=== PATIENT | female | born 1965 | race Caucasian/White ===

== ENCOUNTER 2022-07-01 12:34 | Outpatient (CLI) | payer OTHER, SELFPAY ==
--- NOTE | 2022-07-01 12:53 | XRR_ITS ---
PROCEDURE INFORMATION: Exam: XR Chest Exam date and time: 07/01/2022 1:00 PM Age: 56 years old Clinical indication: Other: Lt sided pain; Patient HX: History-- hurts to breath on left side since 4 am; Additional info: Left sided pleurisy TECHNIQUE: Imaging protocol: Radiologic exam of the chest. Views: 2 views. COMPARISON: No relevant prior studies available. FINDINGS: Lungs: Unremarkable. No consolidation. Pleural spaces: Unremarkable. No pleural effusion. No pneumothorax. Heart/Mediastinum: Unremarkable. No cardiomegaly. Bones/joints: Unremarkable. XR/XR chest 2V* [id number] IMPRESSION: No acute findings.
== END 2022-07-01 12:35 | disposition home or self-care (01) ==
PROVIDERS: PCP Family Medicine; Visit Provider Clinical Nurse Specialist Adult Health
DX: R09.1 Pleurisy (principal)
CPT/HCPCS: 71046

== ENCOUNTER → 2022-07-27 15:36 | Outpatient (BNVA) | payer OTHER, SELFPAY | PROVIDERS: PCP Family Medicine; Referring Provider Dermatology; Visit Provider Podiatrist Foot & Ankle Surgery | DX: M72.2 Plantar fascial fibromatosis (principal) | CPT/HCPCS: 73630 ==

== ENCOUNTER 2022-09-23 09:58 | Emergency (ER) | payer OTHER, SELFPAY ==
[2022-09-23 10:00] VITALS: BMI 35.6
[2022-09-23 10:03] VITALS: BP 163/97; PULSE 65; RESP 18; TEMP 36.7; O2SAT 100
--- NOTE | 2022-09-23 10:03 | ECG_ITS ---
[facility] Test Date: 2022-09-23 Pat Name: Dinah Rockwell Department: Room: Gender: Female Fundraising Consultant: : 1965 Requested By: Lukasz Lopez Order Number: [id number] Ammy MD: Jaky Rangel M.D. Measurements Intervals [place] Rate: 76 P: 42 TX: 131 QRS: 47 QRSD: 94 T: 44 QT: 371 QTc: 419 Interpretive Statements SINUS RHYTHM No previous ECG available for comparison Electronically Signed On 09-23-2022 10:42:25 CDT by Jaky Rangel M.D. [id number]
--- NOTE | 2022-09-23 10:15 | XR_ITS ---
WS: [id number] Exam: XR chest 1V portable [id number] Date/Time of Exam: 09/23/2022 10:21 AM Reason For Exam: chest pain Comparison 07/01/2022. Findings: The lungs are clear and fully expanded. Costophrenic angles are sharp. No infiltrates. Bronchovascula r relief appears normal. Cardiac silhouette is unremarkable. Bony elements are intact. XR/XR chest 1V portable [id number] IMPRESSION: Unremarkable chest radiograph.
--- NOTE | 2022-09-23 10:36 | PC.NURSE ---
Patient is on continuous cardiac monitoring.
--- NOTE | 2022-09-23 10:38 | ED_ITS ---
HPI - Chest Pain General: Chief Complaint: Chest Pain Stated Complaint: Chest pains Time Seen by Provider: 09/23/22 10:00 Source: patient Mode of arrival: ambulatory History of Present Illness: 57-year-old female who presents to the emergency room with complaint of chest discomfort. Symptoms began yesterday she initially thought it was from heartburn last couple of nights she had relief with Pepto- Bismol that this morning she did not get relief. She did take some aspirin this morning. She feels like the patient is slowly in her chest she told me she had no radiation to neck arms back or shoulders. It seems to be improved now. She has had episodes of chest discomfort in the past which she is related to anxiety. She been getting 1 episode every 3 to 4 months. She recently seen her primary care doctor and she was set up for a stress test but has not yet been completed. She is not diabetic and does not smoke has no chronic respiratory issues. MD complaint: chest pain Onset (ago): day(s) (2) Timing of current episode: episodic Prior episodes: Yes Onset: during rest Pain location: left chest Pain radiation: none Severity: mild Quality: aching and heaviness Relieving factors: nothing Exacerbating factors: nothing Associated symptoms: Reports dyspnea; Deny abdominal pain, diaphoresis, fever(s), leg edema, nausea, palpitations, sense of impending doom, syncope or vomiting Treatment prior to arrival: aspirin Review of Systems Const: Denies: fever(s) or diaphoresis Card: Denies: palpitations or syncope Resp: Reports: dyspnea GI: Denies: abdominal pain, nausea or vomiting [facility] ED PFSH: Medical History (Updated 09/23/22 @ 13:10 by Lukasz Palacios DO) Depression Osteoporosis Surgical History H/O section H/O oral surgery H/O: hysterectomy History of laparotomy adhesion removal Family History Father Anesthesia complication Cancer prostate Hypertension Grandfather Anesthesia complication Grandmother Cancer melanoma Diabetes Sister Cancer throat Other CAD (coronary artery disease) Denies family history of Bleeding disorder Social History Smoking and tobacco status: never smoked Alcohol intake: current Alcohol intake frequency: holidays/special occasions only Household members: spouse Marital status: Current occupational status: employed History of recent travel: Yes Details: [place] 3 weeks ago Out of state: Yes Course Vital Signs: Vital signs: Vital Signs Temperature 98.0 F 09/23/22 10:03 Pulse Rate 65 09/23/22 10:03 Respiratory Rate 18 09/23/22 10:03 Blood Pressure 163/97 09/23/22 10:03 Pulse Oximetry 100 09/23/22 10:03 Oxygen Delivery Me thod 09/23/22 10:03 MDM - Chest Pain Medical Decision Making EKG and cardiac enzymes are negative. We will go and have her start taking baby aspirin daily. Stop Pepto-Bismol and start pantoprazole. She relates a lot of this to anxiety this been an ongoing issue evidently for some time she had a stress test scheduled but it got canceled due to some other complicating factors in her family life. Discussed with her we need to get that rescheduled and follow-up with her primary care doctor. Her initial blood pressure little elevated but it normalized I do not think she would tolerate starting Imdur at this point. She is advised to return if she has further chest pain. Medical Records I reviewed the patient's medical records. Lab Data I reviewed the patient's lab results. : 09/23/22 10:30 09/23/22 10:30 Radiology Impressions Chest X-Ray 09/23/22 10:15 IMPRESSION: Unremarkable chest radiograph. Laboratory Results WBC 6.3 10^3/uL (4.0-10.0) 09/23/22 10:30 RBC 4.81 10^6/uL (4.1-5.3) 09/23/22 10:30 Hgb 14.0 g/dL (11.5-15.3) 09/23/22 10:30 Hct 43.2 % (37.0-47.0) 09/23/22 10:30 MCV 89.8 fl (81-99) 09/23/22 10:30 MCH 29.1 pg (28.0-34.0) 09/23/22 10:30 MCHC 32.4 g/dL (30.0-36.0) 09/23/22 10:30 RDW 12.8 % (12.1-15.1) 09/23/22 10:30 Plt Count 162 10^3/cmm (130-400) 09/23/22 10:30 MPV 10.3 fL (7.4-10.4) 09/23/22 10:30 Neut % (Auto) 58.2 % 09/23/22 10:30 Lymph % (Auto) 32.1 % 09/23/22 10:30 [place] % (Auto) 7.2 % 09/23/22 10:30 Eos % (Auto) 1.6 % 09/23/22 10:30 Baso % (Auto) 0.6 % 09/23/22 10:30 Neut # (Auto) 3.65 10^3/uL (1.8-7.7) 09/23/22 10:30 Lymph # (Auto) 2.0 10^3/uL (0.8-4.8) 09/23/22 10:30 [place] # (Auto) 0.5 10^3/uL (0.2-0.9) 09/23/22 10:30 Eos # (Auto) 0.1 10^3/uL (0.0-0.8) 09/23/22 10:30 Baso # (Auto) 0.0 10^3/uL (0.0-0.1) 09/23/22 10:30 Nucleated RBC % (auto) 0 % 09/23/22 10:30 Nucleated RBCs # 0.0 /100WBC 09/23/22 10:30 Sodium 138 mmol/L (136-145) 09/23/22 10:30 Potassium 3.8 mmol/L (3.5-5.1) 09/23/22 10:30 Chloride 100 mmol/L (98-107) 09/23/22 10:30 Carbon Dioxide 26 mmol/L (22-29) 09/23/22 10:30 Anion Gap 15.8 (5-19) 09/23/22 10:30 BUN 19 mg/dL (6-20) 09/23/22 10:30 Creatinine 0.7 mg/dL (0.5-0.9) 09/23/22 10:30 GFR Calculation 86.9 mL/min (90-130) L 09/23/22 10:30 Glucose 92 mg/dL (65-115) 09/23/22 10:30 Calculated Osmolality 288 mOsm/kg (285-295) 09/23/22 10:30 Calcium 9.9 mg/dL (8.5-10.5) 09/23/22 10:30 Total Bilirubin 0.3 mg/dL (0.15-1.2) 09/23/22 10:30 AST 21 U/L (0-32) 09/23/22 10:30 ALT 26 U/L (0-33) 09/23/22 10:30 Alkaline Phosphatase 72 U/L (35-105) 09/23/22 10:30 Troponin T Baseline 6 ng/L (0-10) 09/23/22 10:30 Troponin T 120 Minute 6.00 ng/L (0-10) 09/23/22 12:24 Total Protein 8.3 g/dL (6.6-8.7) 09/23/22 10:30 Albumin 4.8 g/dL (3.5-5.2) 09/23/22 10:30 Globulin 3.5 g/dL (1.3-4.6) 09/23/22 10:30 Discharge Plan Discharge Patient Disposition: Home Clinical Impression: Atypical chest pain Condition: Stable Prescriptions: New aspirin 81 mg tablet,delayed release (DR/EC) 81 mg PO DAILY Qty: 30 0RF pantoprazole 40 mg tablet,delayed release (DR/EC) 40 mg PO DAILY Qty: 30 0RF Discontinued aspirin 325 mg Tablet 325 mg PO .ONCE bismuth subsalicylate [Pepto-Bismol] 262 mg Tablet,Chewable 262 mg PO PRN PRN (Reason: Heartburn) No Action ibuprofen 200 mg Tablet 400 mg PO Q6H PRN (Reason: Pain) Discharge Orders: Discharge ED (Routine); Ordered 09/23/22 Ordered By: Lukasz Palacios Referrals: Jaspreet Hinkle MD [Primary Care Provider] - Patient Instructions: Opioid Safety, Pain Management Activity Restrictions/Additional Instructions: Case management will reschedule your Lexiscan sestamibi stress test. Start taking 1 baby aspirin daily. Stop Pepto-Bismol and start pantoprazole 40 mg daily. Coding Level of Care Code ED Assistant Property Manager for Raul [place]
[2022-09-23 10:43] LABS: Basophils % 0.6 %; Eosinophils # 0.1 10^3/uL (0.0-0.8); Eosinophils % 1.6 %; Hematocrit 43.2 % (37.0-47.0); Lymphocytes % 32.1 %; Mean Corpuscular HGB Conc 32.4 g/dL (30.0-36.0); Mean Corpuscular Hemoglobin 29.1 pg (28.0-34.0); Mean Corpuscular Volume 89.8 fl (81-99); Mean Platelet Volume 10.3 fL (7.4-10.4); Monocytes # 0.5 10^3/uL (0.2-0.9); Monocytes % 7.2 %; Neutrophils # 3.65 10^3/uL (1.8-7.7); Neutrophils % 58.2 %; Nucleated Red Blood Cells % 0 %; Platelet Count 162 10^3/cmm (130-400); Red Blood Count 4.81 10^6/uL (4.1-5.3); Red Cell Distribution Width 12.8 % (12.1-15.1); White Blood Count 6.3 10^3/uL (4.0-10.0)
[2022-09-23] MEDS: aspirin 81 mg Chew Tablet 324 MG PO (10:43)
[2022-09-23 11:05] LABS: Troponin(5th) Baseline 6 ng/L (0-10)
[2022-09-23 11:06] LABS: Alanine Aminotransferase 26 U/L (0-33); Albumin Level 4.8 g/dL (3.5-5.2); Alkaline Phosphatase 72 U/L (35-105); Anion Gap 15.8 (5-19); Aspartate Amino Transferase 21 U/L (0-32); Blood Urea Nitrogen 19 mg/dL (6-20); Calcium 9.9 mg/dL (8.5-10.5); Carbon Dioxide 26 mmol/L (22-29); Chloride 100 mmol/L (98-107); Globulin 3.5 g/dL (1.3-4.6); Glomerular Filtration Rate 86.9 mL/min (90-130); Glucose 92 mg/dL (65-115); Osmolality Calculated 288 mOsm/kg (285-295); Potassium 3.8 mmol/L (3.5-5.1); Sodium 138 mmol/L (136-145); Total Bilirubin 0.3 mg/dL (0.15-1.2); Total Protein 8.3 g/dL (6.6-8.7)
--- NOTE | 2022-09-23 12:06 | ECG_ITS ---
[facility] Test Date: 2022-09-23 Pat Name: Dinah Rockwell Department: Room: Gender: Female Product Marketing Executive: : 1965 Requested By: Lukasz Lopez Order Number: [id number] Ammy MD: Jaky Rangel M.D. Measurements Intervals [place] Rate: 63 P: 44 ID: [id number] QRS: 46 QRSD: 90 T: 0 QT: 385 QTc: 396 Interpretive Statements SINUS RHYTHM PROBABLE INFERIOR MYOCARDIAL INFARCTION , PROBABLY OLD [35 ms Q WAVE IN II/aVF] Compared to ECG 09/23/2022 10:13:26 Myocardial infarct finding now present Electronically Signed On 09-23-2022 18:01:58 CDT by Jaky Rangel M.D. [id number]
[2022-09-23 13:16] VITALS: BP 108/78; PULSE 64; RESP 18; O2SAT 96
[2022-09-23 13:27] VITALS: BP 109/76; PULSE 70; RESP 20; O2SAT 97
[2022-09-23 13:30] LABS: Troponin 5 2HR Delta 0 ABS# (0-10)
== END 2022-09-23 13:28 | disposition home or self-care (01) ==
PROVIDERS: Emergency Provider Family Medicine; PCP Family Medicine
DX: R07.89 Other chest pain (principal)
CPT/HCPCS: 36415; 71045; 80053; 84484; 85025; 93005; 99285

== ENCOUNTER → 2022-10-05 14:57 | Outpatient (BNVA) | payer OTHER, SELFPAY | PROVIDERS: PCP Family Medicine; Visit Provider Clinical Nurse Specialist Adult Health | DX: J06.9 Acute upper respiratory infection, unspecified (principal) | CPT/HCPCS: 87400; 87426 ==

== ENCOUNTER → 2024-04-11 07:38 | Outpatient (BNVA) | payer OTHER, SELFPAY | PROVIDERS: PCP Family Medicine; Visit Provider Family Medicine | DX: Z00.00 Encounter for general adult medical examination without abnormal findings (principal) | CPT/HCPCS: 80053; 80061; 85025 ==

== ENCOUNTER 2024-05-13 12:40 | Outpatient (CLI) | payer OTHER, SELFPAY ==
--- NOTE | 2024-05-13 13:00 | XR_ITS ---
WS: [id number] SCREENING DEXA SCAN [employer] Funding CLINICAL INFORMATION: screening COMPARISON: 2019 FINDINGS: The L1-L4 bone mineral density measures 0.814 g/cm2. This corresponds to a T score score of -3.0 and Z score of -2.9. Left femoral neck bone mineral density measures 0.806 g/cm2. This corresponds to a T score of -1.6 an d Z score of -1.4. Right femoral neck bone mineral density measures 0.740 g/cm2. This corresponds to a T score -2.1of an d Z score of -1.9. Mean femoral neck bone mineral density measures 0.773 g/cm2. This corresponds to a T score of -1.9 an d Z score of -1.7. XR/XR DEXA axial skeleton* [id number] IMPRESSION: Osteoporosis lumbar spine. Osteopenia femoral necks. Patient's FRAX calculated 10 year probability for major osteoporotic fracture i s 29.2% and osteoporotic hip fracture is 3.3%. Bone marrow density lumbar spine has decreased -1.1% Bone mineral density femoral necks increased 3.6%
--- NOTE | 2024-05-13 13:30 | MM_ITS ---
WS: [id number] VIEWS: MLO and CC views both breasts. 3D digital tomosynthesis is also included in this exam. Comparison made with prior exam of 01/05/2009, 12/13/2011, 03/22/2016, 10/25/2019,. Findings: There was no sign of mass, architectural distortion or suspicious calcification in either breast. The re are scattered areas of fibroglandular density MM/[place] [id number] Impression: BI-RADS: 1-Negative FOLLOW-UP: 1 Year Follow-up This mammogram was also analyzed by the Computer Aided Detection System R2 Imag e Tractor Mechanic Apprentice.
== END 2024-05-13 12:41 | disposition home or self-care (01) ==
LOC: RAD 12:41
PROVIDERS: PCP Family Medicine; Visit Provider Family Medicine
DX: Z12.31 Encounter for screening mammogram for malignant neoplasm of breast (principal); Z13.820 Encounter for screening for osteoporosis; R92.323 Mammographic fibroglandular density, bilateral breasts; M81.0 Age-related osteoporosis without current pathological fracture
CPT/HCPCS: 77063; 77067; 77080

== ENCOUNTER → 2024-07-05 15:54 | Outpatient (BNVA) | payer OTHER, SELFPAY | PROVIDERS: PCP Family Medicine; Visit Provider Emergency Medicine | DX: R51.9 Headache, unspecified (principal) | CPT/HCPCS: 87426 ==

== ENCOUNTER 2025-04-20 16:28 | Emergency (ER) | payer OTHER, SELFPAY ==
[2025-04-20 16:39] VITALS: BP 124/66; PULSE 79; RESP 16; TEMP 36.9; O2SAT 98; BMI 37.8
--- NOTE | 2025-04-20 16:54 | CTR_ITS ---
PROCEDURE INFORMATION: Exam: CT Abdomen And Pelvis With Contrast Exam date and time: 04/20/2025 6:36 PM Age: 59 years old Clinical indication: Nausea and other: Tarry stool; Abdominal pain; Prior surgery; Surgery date: 6+ months; Surgery type: Hysterectomy. Csection; C/O epigastric pain with nausea and tarry stool. ; Additional info: Upper gi bleed TECHNIQUE: Imaging protocol: Computed tomography of the abdomen and pelvis with contrast. Radiation optimization: All CT scans at this facility use at least one of these dose optimization techniques: automated exposure control; mA and/or kV adjustment per patient size (includes targeted exams where dose is matched to clinical indication); or iterative reconstruction. Contrast material: OMNI 350; Contrast volume: 100 ml; Contrast route: INTRAVENOUS (IV); COMPARISON: CR XR chest 1V portable [id number] 09/23/2022 10:25 AM RADIATION DOSE METRICS: Total DLP (mGy-cm): 842.57 FINDINGS: Diaphragm: Small hiatal hernia is demonstrated within the lower mediastinum. Liver: Well-defined and simple appearing incidental hepatic lesions most compatible with cysts. Largest liver cyst measurement and location: Liver cysts measure up to 1.4 cm. Liver demonstrates diffuse hypodensity. Liver appears heterogeneous with irregular border. Possible hepatic parenchymal disease. Gallbladder and biliary ducts: Unremarkable. No calcified stones. No ductal dilation. Pancreas: Unremarkable. Spleen: Incidental calcifications noted within the spleen, compatible with old granulomatous disease. Adrenal glands: Normal. No mass. Kidneys and ureters: Bilateral simple appearing incidental renal cysts are demonstrated. The largest cyst within posterior upper left kidney measures up to 2.5 cm. The visualized kidneys appear otherwise unremarkable. No visualized renal hydronephrosis. No visible renal calculi. Stomach and bowel: Colonic diverticulosis is noted, with greatest involvement of the sigmoid colon region. No definite visible evidence for focal acute diverticulitis. The bowel appears otherwise unremarkable. Appendix: No evidence of appendicitis. Intraperitoneal space: No free air. No significant fluid collection. Vasculature: Calcifications in the pelvis, most compatible with phleboliths. Lymph nodes: No enlarged lymph nodes. Urinary bladder: Unremarkable as visualized. Reproductive: The uterus is not present. Bones/joints: No acute bony abnormality. No significant degenerative changes. Soft tissues: Unremarkable. Other findings: This study is limited by patient's body habitus. CT/CT abdomen pelvis w con* [id number] IMPRESSION: 1. Hepatic steatosis. Nonspecific heterogeneous and irregular appearance of the liver. Recommend correlation with liver function tests. 2. Small sized hiatal hernia. 3. Colonic diverticulosis. COMMENTS: Consistent with the [employer]'s Incidental Findings Committee white paper (J Am Imer Radiol 2018): Any incidental renal lesion less than 1 cm or classified as too small to characterize, or any incidental cystic renal lesion characterized as simple-appearing, is likely benign. No follow-up imaging is recommended for these lesions per consensus recommendations based on imaging criteria.
[2025-04-20 17:31] LABS: Basophils % 0.3 %; Eosinophils # 0.1 10^3/uL (0.0-0.8); Hematocrit 39.2 % (36-47); Mean Corpuscular HGB Conc 32.7 g/dL (30-55); Mean Corpuscular Hemoglobin 29.3 pg (27-33); Mean Corpuscular Volume 89.7 fl (85-98); Mean Platelet Volume 10.5 fL (7.4-10.4); Monocytes # 0.5 10^3/uL (0.2-0.9); Neutrophils # 3.93 10^3/uL (1.8-7.7); Neutrophils % 59.4 %; Nucleated Red Blood Cells % 0 %; Platelet Count 161 10^3/cmm (157-399); Red Blood Count 4.37 10^6/uL (3.85-5.65); Red Cell Distribution Width 12.7 % (12.1-15.1); White Blood Count 6.61 10^3/uL (3.29-11.43)
[2025-04-20 17:42] LABS: INR 0.93 (0.8-1.2)
[2025-04-20 17:50] LABS: Alanine Aminotransferase 18 U/L (0-33); Alkaline Phosphatase 63 U/L (35-105); Anion Gap 15.8 (5-19); Aspartate Amino Transferase 18 U/L (0-32); Blood Urea Nitrogen 14 mg/dL (6-20); Calcium 8.8 mg/dL (8.5-10.5); Carbon Dioxide 22 mmol/L (22-29); Chloride 103 mmol/L (98-107); Creatinine Clr Calc Pharmacy 87.4859; Globulin 3.1 g/dL (1.3-4.6); Glomerular Filtration Rate 86.2 mL/min (90-130); Glucose 100 mg/dL (65-115); Osmolality Calculated 285 mOsm/kg (285-295); Potassium 3.8 mmol/L (3.5-5.1); Sodium 137 mmol/L (136-145); Total Bilirubin 0.3 mg/dL (0.15-1.2); Total Protein 7.1 g/dL (6.6-8.7)
[2025-04-20 18:21] VITALS: RESP 18; O2SAT 98
[2025-04-20] MEDS: iohexol 350 mg/mL 500 mL Btl (per mL) IV (18:37)
[2025-04-20 19:10] LABS: Bilirubin Urine Negative (Negative); Blood Urine Negative (Negative); Glucose Urine UA Negative (Normal); Ketones Urine Negative (Negative); Leukocyte Esterase Urine Negative (Negative); Nitrate Urine Negative (Negative); Protein Urine Negative (Negative); Urine Appearance Clear (CLEAR); Urine Color Yellow (Yellow)
[2025-04-20 19:12] LABS: Add Urine Microscopic? YES; Bacteria Urine Trace /hpf; Hyaline Casts Urine 0-4 /lpf; RBC Urine 0-2 /hpf (0-2); Squamous Epithelial Cell Urine 0-5 /hpf (0-5); WBC Urine 0-5 /hpf (0-5)
[2025-04-20 19:14] LABS: Specific Gravity, Urine 1.039 (1.005-1.030)
[2025-04-20 19:16] LABS: Lipase 29 U/L (13-60)
[2025-04-20 19:30] VITALS: BP 118/72; PULSE 78; RESP 16; O2SAT 98
--- NOTE | 2025-04-20 19:55 | ED_ITS ---
HPI - GI Bleed 2 General: Chief complaint: GI Bleed Stated complaint: blood in stool Time Seen by Provider: 04/20/25 17:59 History of Present Illness: This patient is a 59-year-old white female who presents to the emergency department concerned about possible GI bleeding. Patient states she has noticed 2 dark tarry stools today. She is having some mid abdominal pain as well. She has had some nausea but no vomiting. She is not feeling lightheaded. No chest pain. She states she does have chronic shortness of breath secondary to being out of shape. She does take ibuprofen on almost a daily basis. She also takes aspirin. Associated symptoms: Reports abdominal pain Related Data Previous Rx's ?Medication ?Instructions ?Recorded aspirin 81 mg tablet,delayed 81 mg PO DAILY #30 tabs 1 11/23/21 release estradiol 0.01% (0.1 mg/gram) 1 g vaginal DAILY #42.5 grams 02/05/25 vaginal cream estradiol 1 mg tablet 1 mg PO DAILY #90 tabs 02/05 pantoprazole 40 mg tablet,delayed 40 mg PO DAILY #30 t abs 04/20/25 release (Protonix) Allergies Allergy/AdvReac Type Severity Reaction Status Date / Time No Known Allergies Allergy Verified 02/05/25 11:33 Review of Systems 2 General: Reports: 10 or more systems reviewed and unremarkable except in HPI and below GI: Reports: abdominal pain and melena PFSH ED 2 PFSH: Medical History (Updated 04/20/25 @ 20:33 by Valentino Mccormack MD) Osteoporosis Depression Surgical History H/O oral surgery H/O section H/O: hysterectomy History of laparotomy adhesion removal Family History (Updated 02/05/25 @ 11:20 by Komal Hurst CMA) Father Anesthesia complication Cancer prostate Hypertension Grandfather Anesthesia complication Diabetes Grandmother Cancer melanoma Diabetes Sister Cancer throat Heart disease Mother Hypertension Other CAD (coronary artery disease) Hyperthyroidism Denies family history of Colon cancer Hyperlipidemia Breast cancer Bleeding disorder Thyroid disease Stroke Social History Smoking and tobacco/nicotine status: never used tobacco/nicotine Alcohol intake: current Alcohol intake frequency: holidays/special occasions only Substance/Drug Use: never Household members: spouse Marital status: Current occupational status: employed Physical Exam 2 Const: COMMON NORMALS: no acute distress, patient oriented x3 and no limitations GENERAL APPEARANCE: cooperative and comfortable HENMT: COMMON NORMALS: normocephalic, atraumatic, Normal nasal mucous membranes and turbinates present, moist oral mucous membranes and oropharynx normal HEAD & SCALP: normal to inspection, normocephalic and atraumatic F PAT & SINUS: normal facial exam NOSE: Normal nasal mucous membranes and turbinates present Eye: COMMON NORMALS: Equal, round and reactive pupils present, EOMs intact bilaterally and conjunctivae normal GENERAL EYE: appearance normal, both eyes and all related structures CONJUNCTIVA: Yes conjunctivae normal PUPIL: Yes Equal, round and reactive pupils present Neck/C-Spine: COMMON NORMALS: supple and no JVD Chest: COMMONS NORMALS: normal inspection of the chest Resp: COMMON NORMALS: normal respiratory effort and clear to auscultation bilaterally AUSCULTATION: clear to auscultation bilaterally Cardio: COMMON NORMALS: no JVD, regular rate, regular rhythm, No gallops present (Cardio), No murmurs present (Cardio) and No rub (Cardio) RATE: r egular rate RHYTHM: regular rhythm GI: COMMON NORMALS: Normal to inspection, nondistended, normoactive bowel sounds present, Soft to palpation and non-tender AUSCULTATION: Yes normoactive bowel sounds PALPATION: Yes Soft to palpation, Yes Tenderness to palpation present (GI) (Central abdomen), No Guarding due to palpation present (GI) and No Rebound tenderness present : COMMON NORMALS: Yes no CVA tenderness BLADDER/KIDNEY EXAM: Yes no CVA tenderness Back/Pelvis: COMMON NORMALS: no CVA tenderness and thoracic and lumbar spine normal to inspection Extremity: COMMON NORMALS: normal to inspection Neuro: COMMON NORMALS: patient oriented x3 and CN's II-XII intact bilaterally Psych: COMMON NORMALS: mental status grossly normal, Normal thought process present and cooperative THOUGHT PROCESS: Normal thought process present Skin: COMMON NORMALS: no rashes or lesions noted, turgor normal and no jaundice GENERAL SKIN EXAM: no rashes or lesions noted and turgor normal Course 2 Vital Signs: Vital signs: Vital Signs Temperature 98.4 F 04/20/25 16:39 Pulse Rate 76 04/20/25 20:51 Respiratory Rate 16 04/20/25 20:51 Blood Pressure 127/65 06/01/25 20:51 Pulse Oximetry 94 04/20/25 20:51 Oxygen Delivery Me thod Room Air 04/20/25 20:25 MDM - GI Bleed Medical Decision Making CBC was normal. CMP normal. Coags normal. Lipase 29. CT scan of the abdomen and pelvis was read to the radiologist as normal except for some hepatic steatosis. Rectal exam did not reveal any gross blood. Stool was not black. It was guaiac positive. Patient does not appear to be having a severe upper GI bleed. She does have some guaiac positive stool which will require further workup. I recommended she follow-up with her primary care provider and have them arrange for a GI consult with likely upper and lower endoscopies. I did place her on Protonix. She was discharged in stable condition. Lab Data 04/20/25 17:22 04/20/25 17:22 Radiology Impressions Abdomen/Pelvis CT 04/20/25 16:54 IMPRESSION: 1. Hepatic steatosis. Nonspecific heterogeneous and irregular appearance of the liver. Recommend correlation with liver function tests. 2. Small sized hiatal hernia. 3. Colonic diverticulosis. COMMENTS: Consistent with the [employer] [employer]'s Incidental Findings Committee white paper (J Am Imre Radiol 2018): Any incidental renal lesion less than 1 cm or classified as too small to characterize, or any incidental cystic renal lesion characterized as simple-appearing, is likely benign. No follow-up imaging is recommended for these lesions per consensus recommendations based on imaging criteria. Laboratory Results WBC 6.61 10^3/uL (3.29-11.43) 04/20/25 17:22 RBC 4.37 10^6/uL (3.85-5.65) 04/20/25 17:22 Hgb 12.80 g/dL (11.27-16.99) 04/20/25 17:22 Hct 39.2 % (36-47) 04/20/25 17:22 MCV 89.7 fl (85-98) 04/20/25 17:22 MCH 29.3 pg (27-33) 04/20/25 17:22 MCHC 32.7 g/dL (30-55) 04/20/25 17:22 RDW 12.7 % (12.1-15.1) 04/20/25 17:22 Plt Count 161 10^3/cmm (157-399) 04/20/25 17:22 MPV 10.5 fL (7.4-10.4) H 04/20/25 17:22 Neut % (Auto) 59.4 % 04/20/25 17:22 Lymph % (Auto) 30.0 % 04/20/25 17:22 [place] % (Auto) 8.0 % 04/20/25 17:22 Eos % (Auto) 2.0 % 04/20/25 17:22 Baso % (Auto) 0.3 % 04/20/25 17:22 Neut # (Auto) 3.93 10^3/uL (1.8-7.7) 04/20/25 17:22 Lymph # (Auto) 2.0 10^3/uL (0.8-4.8) 04/20/25 17:22 [place] # (Auto) 0.5 10^3/uL (0.2-0.9) 04/20/25 17:22 Eos # (Auto) 0.1 10^3/uL (0.0-0.8) 04/20/25 17:22 Baso # (Auto) 0.0 10^3/uL (0.0-0.1) 04/20/25 17:22 Nucleated RBC % (auto) 0 % 04/20/25 17: Nucleated RBCs # 0.0 /100WBC 04/20/25 17:22 PT 13.10 SECONDS (12.1-14.9) 04/20/25 17:22 INR 0.93 (0.8-1.2) 04/20/25 17:22 Sodium 137 mmol/L (136-145) 04/20/25 17:22 Potassium 3.8 mmol/L (3.5-5.1) 04/20/25 17:22 Chloride 103 mmol/L (98-107) 04/20/25 17:22 Carbon Dioxide 22 mmol/L (22-29) 04/20/25 17:22 Anion Gap 15.8 (5-19) 04/20/25 17:22 BUN 14 mg/dL (6-20) 04/20/25 17:22 Creatinine 0.7 mg/dL (0.5-0.9) 04/20/25 17:22 GFR Calculation 86.2 mL/min (90-130) L 04/20/25 17:22 Glucose 100 mg/dL (65-115) 04/20/25 17:22 Calculated Osmolality 285 mOsm/kg (285-295) 04/20/25 17:22 Calcium 8.8 mg/dL (8.5-10.5) 04/20/25 17:22 Total Bilirubin 0.3 mg/dL (0.15-1.2) 04/20/25 17:22 AST 18 U/L (0-32) 04/20/25 17:22 ALT 18 U/L (0-33) 04/20/25 17:22 Alkaline Phosphatase 63 U/L (35-105) 04/20/25 17:22 Total Protein 7.1 g/dL (6.6-8.7) 04/20/25 17:22 Albumin 4.0 g/dL (3.5-5.2) 04/20/25 17:22 Globulin 3.1 g/dL (1.3-4.6) 04/20/25 17:22 Lipase 29 U/L (13-60) 04/20/25 17:22 Urine Color Yellow (Yellow) 04/20/25 19:03 Urine Appearance Clear (CLEAR) 04/20/25 19:03 Urine pH 7.0 (5-7) 04/20/25 19:03 Ur Specific Outlook 1.039 (1.005-1.030) H 04/20/25 19:03 Urine Protein Negative (Negative) 04/20/25 19:03 Urine Glucose (UA) Negative (Normal) 04/20/25 19:03 Urine Ketones Negative (Negative) 04/20/25 19:03 Urine Blood Negative (Negative) 04/20/25 19:03 Urine Nitrate Negative (Negative) 04/20/25 19:03 Urine Bilirubin Negative (Negative) 04/20/25 19:03 Urine Urobilinogen 1.0 mg/dL (Negative) 04/20/25 19:03 Ur Leukocyte Esterase Negative (Negative) 04/20/25 19:03 Urine RBC 0-2 /hpf (0-2) 04/20/25 19:03 Urine WBC 0-5 /hpf (0-5) 04/20/25 19:03 Ur Squamous Epith Cells 0-5 /hpf (0-5) 04/20/25 19:03 Amorphous Sediment Not Reportable 04/20/25 19:03 Urine Bacteria Trace /hpf (NONE) 04/20/25 19:03 Hyaline Casts 0-4 /lpf H 04/20/25 19:03 All radiology interpretation(s) finalized by discharge Discharge Plan Discharge Patient Disposition: Home Clinical Impression: Stool guaiac positive Abdominal pain Qualifiers: Abdominal location: upper abdomen, unspecified Qualified Code(s): R10.10 - Upper abdominal pain, unspecified Condition: Stable Prescriptions: New pantoprazole [Protonix] 40 mg tablet,delayed release (DR/EC) 40 mg PO DAILY Qty: 30 0RF No Action estradiol 1 mg tablet 1 mg PO DAILY Qty: 90 1RF Rx Instructions: take one tab daily estradiol 0.01 % (0.1 mg/gram) cream 1 g vaginal DAILY Qty: 42.5 3RF Rx Instructions: twice daily for 14 days and then apply twice weekly aspirin 81 mg tablet,delayed release (DR/EC) 81 mg PO DAILY Qty: 30 0RF Discharge Orders: Discharge ED (Routine); Ordered 04/20/25 Ordered By: Valentino Mccormack Referrals: Jaspreet Hinkle MD [Primary Care Provider, Family Practice] Patient Instructions: GI Bleeding, Abdominal Pain (ED) Activity Restrictions/Additional Instructions: Discontinue ibuprofen. Follow-up with your primary care provider soon as possible for recheck. You will need to be referred to GI for further workup of the guaiac positive stool. Take the Protonix as prescribed. Print Language: [place]de[place] Coding Level of Care Code ED Wax Room Supervisor for Raul [place]
[2025-04-20 20:25] VITALS: BP 124/62; PULSE 73; RESP 16; O2SAT 97
[2025-04-20 20:51] VITALS: BP 127/65; PULSE 76; RESP 16; O2SAT 94
== END 2025-04-20 20:54 | disposition home or self-care (01) ==
PROVIDERS: Family Medicine; Emergency Provider Emergency Medicine; PCP Family Medicine
DX: R10.10 Upper abdominal pain, unspecified (principal); R19.5 Other fecal abnormalities; Z79.82 Long term (current) use of aspirin
CPT/HCPCS: 36415; 74177; 80053; 81001; 83690; 85025; 85610; 99285

== ENCOUNTER → 2025-07-17 11:55 | Outpatient (BNVA) | payer OTHER, SELFPAY | PROVIDERS: PCP Family Medicine; Visit Provider Family Medicine | DX: R30.0 Dysuria (principal); N39.0 Urinary tract infection, site not specified | CPT/HCPCS: 81000; 87086 ==